=== PATIENT | male | born 2000 | race Caucasian/White ===

== ENCOUNTER 2023-08-12 22:53 | Emergency (ER) | payer BC | END 2023-08-13 00:48 | disposition home or self-care (01) | LOC: ERS 22:53 | DX: S92.101A Unspecified fracture of right talus, initial encounter for closed fracture (principal); X50.9XXA Other and unspecified overexertion or strenuous movements or postures, initial encounter; Y93.68 Activity, volleyball (beach) (court) | CPT/HCPCS: 29515 ==